=== PATIENT | male | born 1980 | race African-American/Black ===

== ENCOUNTER 2016-09-07 16:06 | Emergency (ER) | payer OTHER ==
[2016-09-07] MEDS ORDERED: OXYCODONE-ACETAMINOPHEN 5-325 MG TABLET PO ONE (16:17)
--- NOTE | 2016-09-07 16:19 | ER Document Report ---
ED Medical Screen (RME) - General Stated Complaint: ANKLE INJURY Mode of Arrival: Wheelchair Information source: Patient Notes: Patient presents to the emergency department with complaints of right ankle right foot pain after playing basketball. Patient reports he jumped up, blocked a shot and landed funny on his ankle. I have greeted and performed a rapid initial assessment of this patient. A comprehensive ED assessment and evaluation of the patient, analysis of test results and completion of the medical decision making process will be conducted by additional ED providers. TRAVEL OUTSIDE OF THE [place] IN LAST 30 DAYS: No Past Medical History - Social History Chew tobacco use (# tins/day): No Frequency of alcohol use: None Drug Abuse: None Renal/ Medical History: Denies: Hx Peritoneal Dialysis
[2016-09-07] MEDS ORDERED: PROPOFOL INJ 200 MG/20 ML VIAL IV ONE ×5 (18:25→19:07)
[2016-09-07] MEDS ORDERED: MORPHINE SULFATE 10 MG/ML INJ IV ONE (18:26)
--- NOTE | 2016-09-07 18:29 | ER Document Report ---
ED Extremity Problem, Lower - General Chief Complaint: Foot Injury Stated Complaint: ANKLE INJURY Time seen by provider: 18:27 Mode of Arrival: Wheelchair Information source: Patient TRAVEL OUTSIDE OF THE [place] IN LAST 30 DAYS: No - HPI Patient complains to provider of: Injury, Pain, Swelling Location: Ankle Occurred: Just prior to arrival Where: Sports Onset/Duration: Sudden Quality of pain: Achy, Pressure Severity: Moderate Pain Level: 4 Context: Fell, Twisted Recent injury: Yes Associated symptoms: Unable to bear weight Exacerbated by: Movement Relieved by: Nothing Notes: Patient is a 36-year-old male who presents to the emergency room with complaints of injury to his right ankle that occurred just prior to arrival, patient states he was playing basketball and came down on the ankle in a strange position, causing her to twist and causing him to fall to the ground, he was unable to get up and bear weight afterwards, he reports a history of injury to the foot previously but not the ankle, otherwise healthy male - Related Data Allergies/Adverse Reactions: No Known Allergies Allergy (Unverified 09/07/16 16:18) Past Medical History - General Information source: Patient - Social History Smoking Status: Never Smoker Chew tobacco use (# tins/day): No Frequency of alcohol use: None Drug Abuse: None Family History: Reviewed & Not Pertinent Patient has suicidal ideation: No Patient has homicidal ideation: No Renal/ Medical History: Denies: Hx Peritoneal Dialysis Review of Systems - Review of Systems Constitutional: No symptoms reported EENT: No symptoms reported Cardiovascular: No symptoms reported Respiratory: No symptoms reported Gastrointestinal: No symptoms reported Genitourinary: No symptoms reported Male Genitourinary: No symptoms reported Musculoskeletal: See HPI Skin: No symptoms reported Hematologic/Lymphatic: No symptoms reported Neurological/Psychological: No symptoms reported -: Yes All other systems reviewed and negative Physical Exam - Vital signs Vitals: Pulse Ox 100 09/07/16 18:40 Interpretation: Normal - General General appearance: Appears well, Alert - HEENT Head: Normocephalic, Atraumatic Eyes: Normal Pupils: PERRL - Respiratory Respiratory status: No respiratory distress Chest status: Nontender Breath sounds: Normal Chest palpation: Normal - Cardiovascular Rhythm: Regular Heart sounds: Normal auscultation Murmur: No - Abdominal Inspection: Normal Distension: No distension Bowel sounds: Normal Tenderness: Nontender Organomegaly: No organomegaly - Back Back: Normal, Nontender - Extremities General upper extremity: Normal inspection, Nontender, Normal color, Normal ROM , Normal temperature General lower extremity: Normal temperature. No: Yvonne's sign Ankle: Deformity - Right ankle with significant swelling, ecchymosis, mild deformity, distal sensation and motor is intact with brisk capillary refill and 2+ DP pulses - Neurological Neuro grossly intact: Yes Cognition: Normal Orientation: AAOx4 Petra Coma Scale Eye Opening: Spontaneous [place] Coma Scale Verbal: Oriented [place] Coma Scale Motor: Obeys Commands [place] Coma Scale Total: 15 Speech: Normal Motor strength normal: LUE, RUE, LLE, RLE Sensory: Normal - Psychological Associated symptoms: Normal affect, Normal mood - Skin Skin Temperature: Warm Skin Moisture: Dry Skin Color: Normal Course - Re-evaluation Re-evalutation: 09/07/16 21:12 Patient awake and alert, reports feeling better, quite thankful and gracious for care he received in the emergency room today, patient was provided with pain medication as well as information for follow-up with orthopedics, advised to return if symptoms worsen, patient acknowledges understanding and agreement with this plan - Vital Signs Vital signs: Temp Pulse Resp BP Pulse Ox 104 H 16 114/59 L 98 09/07/16 20:30 09/07/16 20:30 09/07/16 20:30 09/07/16 20:30 - Diagnostic Test Radiology reviewed: Image reviewed, Reports reviewed Procedures - Conscious Sedation Conscious sedation Time started: 18:45 Time completed: 19:15 Consent obtained: Yes Indication: ankle fracture/dislocation Normal healthy pt.: P1. - ASA Classification Mallampati Classification: Class 3 Used during procedure: Suction available, IV access obtained, Pulse ox on pt., surveillance system monitor on pt. Medications administered: Diprivan Reversal agents: None I personally performed/intraservice time: Sedation, Procedure, 30 min or less Complications: No - Immobilization Right Ankle Time completed: 19:29 Pre-Proc Neuro Vasc Exam: Normal Immobilizer type: Posterior ankle, Sugar tong Performed by: Provider assisted, RN Post-Proc Neuro Vasc Exam: Normal Alignment checked and good: Yes - Joint Reduction/Fracture Care Right Ankle Time completed: 19:05 Consent obtained: Yes Conscious sedation: Yes Pre-procedure NV exam: Yes Fracture: Closed Manipulation comment: gentle traction and inversion Post-procedure NV exam: Yes Post-reduction x-ray: Joint reduced Reduction attempts: 1 Complications: No Discharge - Discharge Clinical Impression: Fracture dislocation of right ankle Condition: Stable Disposition: HOME, SELF-CARE Instructions: Fractured Ankle (Bimalleolar) ([facility]), Ice & Elevation ([facility]), Use of Crutches ([facility]), Post Sedation Instructions ([facility]) Additional Instructions: Follow up with your primary care provider and an orthopedic surgeon in one to 2 days. Return to the emergency room immediately if symptoms worsen or any additional concerns. Ice and elevate the affected extremity. Limit weightbearing. Prescriptions: Oxycodone HCl/Acetaminophen [Percocet 5-325 mg Tablet] 1 - 2 tab PO ASDIR PRN # 15 tablet PRN Reason: Forms: Return to Work Referrals: BRIANNE CARPENTER DO [ACTIVE STAFF] - Follow up as needed
[2016-09-07] MEDS ORDERED: NORMAL SALINE 1000 ML 1,000 ML IV PRN (19:32)
[2016-09-07] MEDS ORDERED: HYDROCODONE/ACETAMINOPHEN 5-325 MG 6 TAB/DSPK PO PRN (19:56)
[2016-09-07 20:40] VITALS: BP 114/59
== END 2016-09-07 20:30 | disposition home or self-care (01) ==
LOC: ER 16:06
PROC: 0QSJXZZ Reposition Right Fibula, External Approach (ICD-10-PCS; principal; 2016-09-07)
DX: S82.61XA Displaced fracture of lateral malleolus of right fibula, initial encounter for closed fracture (principal); W19.XXXA Unspecified fall, initial encounter; Y93.67 Activity, basketball
CPT/HCPCS: 99283; 96361; 96374; 73600; 73610; 73630; 27788; J2270; J7030; J2704

== ENCOUNTER 2016-09-11 11:54 | Day surgery (SDC) | payer OTHER ==
[2016-09-10 12:48] LABS: HEMOGLOBIN 13.6 g/dL (13.5-17.0); HGB HCT DIFFERENCE 0.8; MEAN CORPUSCULAR HEMOGLOBIN 29.6 pg (27.0-33.4); MEAN CORPUSCULAR HGB CONC 33.9 g/dL (32.0-36.0); MEAN CORPUSCULAR VOLUME 87 fl (80-97); RED BLOOD COUNT 4.59 10^6/uL (4.35-5.55); RED CELL DISTRIBUTION WIDTH 13.1 % (11.5-14.0); WHITE BLOOD COUNT 6.4 10^3/uL (4.0-10.5)
[2016-09-10 12:51] LABS: APPEARANCE,URINE CLEAR; BILIRUBIN,URINE NEGATIVE (NEGATIVE); GLUCOSE, URINE NEGATIVE (NEGATIVE); KETONES,URINE NEGATIVE (NEGATIVE); LEUKOCYTE ESTERASE,URINE NEGATIVE (NEGATIVE); NITRITE,URINE NEGATIVE (NEGATIVE); PROTEIN,URINE NEGATIVE (NEGATIVE); URINE SPECIFIC GRAVITY 1.024
[2016-09-10 13:11] LABS: ANION GAP 13 (5-19); BLOOD UREA NITROGEN 10 mg/dL (7-20); CALCIUM 9.9 mg/dL (8.4-10.2); CARBON DIOXIDE 30 mmol/L (22-30); CHLORIDE 101 mmol/L (98-107); CREATININE RESULT 1.01 mg/dL (0.52-1.25); GLUCOSE 105 mg/dL (75-110); POTASSIUM 4.5 mmol/L (3.6-5.0); SODIUM 144.2 mmol/L (137-145)
--- NOTE | 2016-09-10 14:42 | EKG REPORT ---
SEVERITY:- NORMAL ECG - SINUS RHYTHM : Confirmed by: Minor Lee 10-Sep-2016 14:41:15
[~2016-09-11 11:54] MED LIST: CEFAZOLIN 1 GM/D5W RTU 1 GM/50 ML RTUPB IV PRN; DEXAMETHASONE SOD PHOSPHATE INJ 4 MG/1 ML VIAL ONE; GLYCOPYRROLATE INJ 0.4 MG/2 ML VIAL ONE; METOCLOPRAMIDE HCL INJ/PF 10 MG/2 ML SDV ONE; ONDANSETRON HCL INJ/PF 4 MG/2 ML SDV ONE; RINGERS SOLUTION,LACTATED 1,000 ML IV PRN
[2016-09-11] MEDS ORDERED: FENTANYL CITRATE INJ/PF 250 MCG/5 ML AMPULE ONE (14:11)
[2016-09-11] MEDS ORDERED: MIDAZOLAM 2 MG/2 ML INJ ONE (14:11)
[2016-09-11] MEDS ORDERED: HYDROMORPHONE HCL INJ/PF 2 MG/ML AMPULE ONE (14:11)
[2016-09-11] MEDS ORDERED: ACETAMINOPHEN 100 ML IV ONE (14:12)
[2016-09-11] MEDS ORDERED: PROPOFOL INJ 200 MG/20 ML VIAL IV ONE (14:12)
[2016-09-11] MEDS ORDERED: BUPIVACAINE HCL 0.5 % INJ/PF 30 ML SDV ONE (14:32)
[2016-09-11] MEDS ORDERED: CEFAZOLIN INJ 1 GM VIAL ONE (14:51)
[2016-09-11] MEDS ORDERED: MEPERIDINE HCL/PF INJ 25 MG/1 ML DISP.SYRIN IV PRN (15:52)
[2016-09-11] MEDS ORDERED: MORPHINE SULFATE 10 MG/ML INJ IV PRN (15:52)
[2016-09-11] MEDS ORDERED: FENTANYL CITRATE INJ/PF 100 MCG/2 ML AMPUL IV PRN ×3 (15:52)
[2016-09-11] MEDS ORDERED: DIPHENHYDRAMINE HCL 50 MG/ML VIAL IV PRN (15:52)
[2016-09-11] MEDS ORDERED: PROMETHAZINE HCL INJ 25 MG/1 ML VIAL IV PRN ×2 (15:52)
[2016-09-11] MEDS ORDERED: OXYCODONE-ACETAMINOPHEN 5-325 MG TABLET PO PRN ×4 (15:52→17:02)
--- NOTE | 2016-09-11 16:59 | Operative Report ---
Operative Report DATE OF SURGERY: 09/11/16 PREOPERATIVE DIAGNOSIS: Displaced right lateral malleolus fracture POSTOPERATIVE DIAGNOSIS: Same OPERATION: ORIF of the right lateral malleolus fracture SURGEON: DENNIS WIN ANESTHESIA: GA TISSUE REMOVED OR ALTERED: None COMPLICATIONS: None ESTIMATED BLOOD LOSS: 15 mL INTRAOPERATIVE FINDINGS: As above PROCEDURE: Patient received 2 g of Ancef in the preoperative holding area. Patient was now taken to the operating room and induced and intubated in supine position. Once the tube was secured a thigh tourniquet was applied to right extremity. Extremity was prepped and draped in a normal surgical fashion. Timeout was done identifying the right as the correct site. Esmarch was used to exsanguinate the extremity and the tourniquet was inflated to 300 mmHg. A standard lateral incision was done straight over the distal fibula. Check position was taken down to the bone and then periosteal elevator was used to expose the fracture site and elevate the periosteum at the fracture site. Both fragments were visualized and I Vichmann was used to retract the tissue. I was able to then reduce the fracture with reduction clamps. C-arm pictures were taken to confirm our reduction. I then applied the appropriate plate and make sure was in a proper alignment and with C-arm. Once I was satisfied with the proximal distal situation and the AP lateral position of the plate I proceeded then to use the drill guide and drill to drill the proximal hole in the plate in the distal fragment. I measured and placed a proper length screw. I repeated this with the distal hole in the plate to secure the proximal fragment. Reduction clamp was removed and the fracture stayed reduced. AP and lateral x-rays confirm there is no change in alignment. I then proceeded to fill in the remaining holes I drilling and using C-arm and measuring guide to applied appropriate screws. Once I was satisfied with my lateral fixation At this point I proceeded to close my lateral wound with 0 Vicryl and 3-0 Vicryl and ayden for skin. Tourniquet was let down 46 min and the dressing was applied. Xeroform 4 x 4 sterile dressing followed by Sof-Rol was applied. A posterior Ortho-Glass splint with a Ortho-Glass stirrup splint was applied and overwrapped with an [place] bandage. I held the foot in neutral and waiting until the splint hardened. At this point drapes were removed and patient was extubated and sent to PACU in stable condition.
--- NOTE | 2016-09-11 17:02 | PDOC DISCHARGE SUMMARY ---
Discharge Summary (SDC) - Discharge Final Diagnosis: ORIF of right lateral malleolus fracture Date of Surgery: 09/11/16 Discharge Date: 09/11/16 Condition: Good Treatment or Instructions: Keep the dressing and splint dry clean and intact until follow-up in the office. Bear right lower extremity with crutches. Follow-up in 10-14 days. Prescriptions: Oxycodone HCl/Acetaminophen [Percocet 5-325 mg Tablet] 1 - 2 tab PO ASDIR PRN # 40 tablet PRN Reason: Discharge Diet: As Tolerated Respiratory Treatments at Home: Deep Breathing/Coughing Discharge Activity: No Driving, Keep Legs Elevated, No Lifting/Push/Pulling Home Care Assistance: None Needed Adaptive Devices on Discharge: Axillary Crutches Report the Following to Your Physician Immediately: Shortness of Breath, Vomiting, Increase in Pain, Fever over 101 Degrees, Unusual Bleeding, Redness, Drainage-Yellow, Drainage-Green, Drainage-Foul Smelling, Numbness
[2016-09-11 18:57] VITALS: BP 126/80
== END 2016-09-11 18:45 | disposition home or self-care (01) ==
LOC: OROUT 11:54
PROVIDERS: ATTEND Orthopaedic Surgery
PROC: 0QSJ04Z Reposition Right Fibula with Internal Fixation Device, Open Approach (ICD-10-PCS; principal; 2016-09-11 14:00)
DX: S82.61XA Displaced fracture of lateral malleolus of right fibula, initial encounter for closed fracture (principal); X58.XXXA Exposure to other specified factors, initial encounter; Y93.67 Activity, basketball
CPT/HCPCS: 93005; 36415; 85027; 80048; 81001; 73600; 71020; 93010; 27792; C1713 ×4; J2250; J0690 ×2; J1100; J3010; J2765; J2405; J2704; J0131; J1170